=== PATIENT | female | born 1995 | race Native Hawaiian/Other Pacific Islander ===

== ENCOUNTER 2020-06-28 13:24 | Emergency (ER) | payer SELFPAY ==
--- NOTE | 2020-06-28 14:05 | Emergency Department Report ---
Blank Doc - Documentation Documentation: 25-year-old female that presents with left eye pain and foreign body sensation. This initial assessment/diagnostic orders/clinical plan/treatment(s) is/are subject to change based on patient's health status, clinical progression and re- assessment by fellow clinical providers in the ED. Further treatment and workup at subsequent clinical providers discretion. Patient/guardians urged not to elope from the ED as their condition may be serious if not clinically assessed and managed. Initial orders include: 1- Patient sent to [facility] for further evaluation and treatment 2- strickland lamp/mary pen 3- visual exam
[2020-06-28] MEDS ORDERED: FLUORESCEIN 1 MG STRIP OP ONE (15:10)
[2020-06-28] MEDS ORDERED: BALANCED SALT IRRIG (BSS) OPHTH SOLN 15 ML OU ONE (15:10)
[2020-06-28] MEDS ORDERED: TETRACAINE 0.5% OPHTH SOLN 4ML OU ONE (15:10)
[2020-06-28 15:32] VITALS: BP 109/74
--- NOTE | 2020-06-28 15:39 | Emergency Department Report ---
Eye Injury/Foreign Body - HPI Duration: 2 Days Eye Location: Left Tetanus Status: Up to Date Eye Symptoms: Eye Pain: Yes, Blurred Vision: No, Eye Redness: Yes, Grinding/Hammering Metal: No, Used Eye Protection: No, Contact Lens Use: No, Recalls Injury: No, Photophobia: No Other History: 25-year-old female presents to the emergency room complaining of left eye pain. Patient states she feels that she may have cut her eye or gotten something in it. Patient denies any blunt force no fingernail scratching but she does wear eyelash extensions. Patient reports that her pain is improved from yesterday. ED Review of Systems ROS: Stated complaint: CUT ON EYE Other details as noted in HPI Comment: All other systems reviewed and negative ED Past Medical Hx - Past Medical History Previous Medical History?: No - Surgical History Past Surgical History?: No - Medications Home Medications: Home Medications Medication Instructions Recorded Confirmed Last Taken Type Ibuprofen [Motrin 600 MG tab] 600 mg PO Q8H PRN #21 tablet 06/28/20 Unknown Rx Neomy/Polymyx B/Hc Opth Susp 1 drop OD Q6HR 10 Days #1 bottle 06/28/20 Unknown Rx [Cortisporin (OPTH) Susp] Eye Injury Exam - Exam General: Vital signs noted. No distress. Alert and acting appropriately. - Visual Acuity Left Vision Acuity Degree: 20/20 Eye Exam: Left Injection, Left EOMI, Left Fluorescein Uptake, Left Photophobia, Neither Abnormal Pupil, Neither Eye Foreign Body, Neither Lid Foreign Body, Neither Mucous Discharge, Neither Purulent Discharge, Neither Fluorescein Uptake (slit lamp), Neither Cell/Flare (slit lamp), Neither Corneal Edema Exam: No Josh sign ED Medical Decision Making - Medical Decision Making 25-year-old female presents to the emergency room complaining of left eye pain. Patient states she feels that she may have cut her eye or gotten something in it. Patient denies any blunt force no fingernail scratching but she does wear eyelash extensions. Patient reports that her pain is improved from yesterday. Fluorescein exam shows she has a fluorescein uptake to the left cornea with a linear line from 1:00 to 7:00. Some mild uptake to the portion of 11-12. Patient will be diagnosed with a corneal abrasion placed on IV antibiotics ibuprofen and referral to ophthalmology. Critical care attestation.: If time is entered above; I have spent that time in minutes in the direct care of this critically ill patient, excluding procedure time. ED Disposition Clinical Impression: Cornea abrasion Disposition: DC-01 TO HOME OR SELFCARE Is pt being admited?: No Does the pt Need Aspirin: No Condition: Stable Instructions: Corneal Abrasion (ED) Additional Instructions: Use eyedrops as prescribed. Tylenol or ibuprofen as needed for pain management very important for you to follow-up with an trouble clerk I have listed several below for your convenience. Prescriptions: Neomy/Polymyx B/Hc Opth Susp [Cortisporin (OPTH) Susp] 1 drop OD Q6HR 10 Days #1 bottle Ibuprofen [Motrin 600 MG tab] 600 mg PO Q8H PRN #21 tablet PRN Reason: Pain Referrals: PRIMARY CARE, [Primary Care Provider] - 3-5 Days WILLIAM MORALES MD [Staff Physician] - 3-5 Days [facility] [Provider Group] - 3-5 Days [facility] [Provider Group] - 3-5 Days Forms: Work/School Release Form(ED)
== END 2020-06-28 15:59 | disposition home or self-care (01) ==
LOC: ED 13:24
DX: S05.00XA Injury of conjunctiva and corneal abrasion without foreign body, unspecified eye, initial encounter (principal); Z79.899 Other long term (current) drug therapy; W45.8XXA Other foreign body or object entering through skin, initial encounter; Y93.89 Activity, other specified; Y92.89 Other specified places as the place of occurrence of the external cause; Y99.8 Other external cause status
CPT/HCPCS: 99282

== ENCOUNTER 2020-09-05 02:09 | Emergency (ER) | payer SELFPAY ==
[2020-09-05] MEDS ORDERED: IBUPROFEN 600 MG TAB PO ONE ×2 (02:34→05:14)
[2020-09-05] MEDS ORDERED: RABIES IMMUNE GLOBULIN P/F 300 UNIT/ML INJ 5 ML IM ONE (03:00)
[2020-09-05] MEDS ORDERED: DIPHtheria,PERTUSSIS(ACELL),TETANUS VACCINE/PF 0.5 ML VIAL IM ONE (03:03)
[2020-09-05] MEDS ORDERED: LET TOPICAL (LIDOCAINE/EPINEPHRINE/TETRACAINE) 3 ML TP ONE ×2 (03:03→05:15)
[2020-09-05] MEDS ORDERED: LIDOCAINE (1%) 10 MG/1 ML VIAL 20 ML MDV INFILTRATI ONE (03:03)
[2020-09-05] MEDS ORDERED: AMOXICILLIN/K CLAV 875/125MG TAB PO ONE (03:07)
[2020-09-05] MEDS ORDERED: RABIES VACCINE, HUMAN DIPLOID/PF 2.5 UNIT/ML VIAL IM ONE (03:15)
[2020-09-05] MEDS ORDERED: AMOXICILLIN/K CLAV 875/125MG TAB ONE (05:14)
[2020-09-05] MEDS ORDERED: predniSONE 20 MG TAB PO ONE (06:13)
[2020-09-05] MEDS ORDERED: diphenhydrAMINE 25 MG CAP PO ONE (06:14)
[2020-09-05] MEDS ORDERED: HYDROcodone/ACETAMINOPHEN 5-325 MG TAB PO ONE (06:14)
[2020-09-05] MEDS ORDERED: ONDANSETRON 4 MG ODT TAB PO ONE (06:14)
--- NOTE | 2020-09-05 06:19 | Emergency Department Report ---
ED Animal Bite HPI - General Chief Complaint: Animal Bite Stated Complaint: DOG BITE TO NOSE Source: patient, family Mode of arrival: Ambulatory Limitations: No Limitations - History of Present Illness Initial Comments: Patient is a nulliparous 25-year-old female with no past medical history presents to the ED with complaint of painful bleeding left facial and maxillary puncture wounds from a dog bite about 2 hours ago. Patient states that she was taking the trash out over the house when she suddenly was attacked by a stray dog that she could not recognizer and which bit her on the left maxillary or facial area. Patient states that she is not up-to-date with her tetanus vaccinations. Patient denies loss of consciousness, dizziness, syncope, nausea and vomiting, change in vision, dental injuries, headache or neck pain, chest pain or shortness of breath. MD Complaint: animal bite (dog bite to the face), animal-related injury (facial abrasions and puncture wounds) -: Sudden, hour(s) (2) Location: face Animal: dog (stray dog) Animal Control Notified: No Description: unknown animal, immunizations unknown Mechanism: bite (left facial abrasions, puncture wound), contact with mucous membr Pain Description: sharp, constant Severity scale (0 -10): 7 Context: unprovoked Associated Symptoms: bleeding Treatments Prior to Arrival: wound dressing(s) - Related Data Patient Tetanus UTD: No (Given during this visit) Previous Rx's Medication Instructions Recorded Last Taken Type Ibuprofen [Motrin 600 MG tab] 600 mg PO Q8H PRN #21 tablet 06/28/20 Unknown Rx Neomy/Polymyx B/Hc Opth Susp 1 drop OD Q6HR 10 Days #1 bottle 06/28/20 Unknown Rx [Cortisporin (OPTH) Susp] Acetaminophen/Codeine [Tylenol 1 tab PO Q6H PRN #12 tab 09/05/20 Unknown Rx /Codeine # 3 tab] Ciprofloxacin HCl [Ciprofloxacin 500 mg PO Q12HR #20 tab 09/05/20 Unknown Rx TAB] Clindamycin [Clindamycin CAP] 300 mg PO Q8HR #60 capsule 09/05/20 Unknown Rx Ibuprofen [Motrin] 600 mg PO Q8H PRN #30 tablet 09/05/20 Unknown Rx Ondansetron [Zofran Odt] 4 mg PO Q6HR PRN #15 tab.rapdis 09/05/20 Unknown Rx Allergies Allergy/AdvReac Type Severity Reaction Status Date / Time No Known Allergies Allergy Verified 06/28/20 14:02 ED Review of Systems ROS: Stated complaint: DOG BITE TO NOSE Other details as noted in HPI Constitutional: denies: chills, fever Eyes: denies: eye pain, eye discharge, vision change ENT: other (left maxillary puncture wound, abrasions and lacerations). denies: ear pain, throat pain Respiratory: denies: cough, shortness of breath, wheezing Cardiovascular: denies: chest pain, palpitations Endocrine: no symptoms reported Gastrointestinal: denies: abdominal pain, nausea, diarrhea Genitourinary: denies: urgency, dysuria, discharge Musculoskeletal: denies: back pain, joint swelling, arthralgia Skin: other (Bleeding painful left maxillary puncture wounds, lacerations and abrasions). denies: rash, lesions Neurological: denies: headache, weakness, paresthesias Psychiatric: denies: anxiety, depression Hematological/Lymphatic: denies: easy bleeding, easy bruising ED Past Medical Hx - Past Medical History Previous Medical History?: No - Surgical History Past Surgical History?: Yes Additional Surgical History: right pointer finger surgery - Social History Smoking Status: Never Smoker Substance Use Type: Marijuana - Medications Home Medications: Home Medications Medication Instructions Recorded Confirmed Last Taken Type Ibuprofen [Motrin 600 MG tab] 600 mg PO Q8H PRN #21 tablet 06/28/20 Unknown Rx Neomy/Polymyx B/Hc Opth Susp 1 drop OD Q6HR 10 Days #1 bottle 06/28/20 Unknown Rx [Cortisporin (OPTH) Susp] Acetaminophen/Codeine [Tylenol 1 tab PO Q6H PRN #12 tab 09/05/20 Unknown Rx /Codeine # 3 tab] Ciprofloxacin HCl [Ciprofloxacin 500 mg PO Q12HR #20 tab 09/05/20 Unknown Rx TAB] Clindamycin [Clindamycin CAP] 300 mg PO Q8HR #60 capsule 09/05/20 Unknown Rx Ibuprofen [Motrin] 600 mg PO Q8H PRN #30 tablet 09/05/20 Unknown Rx Ondansetron [Zofran Odt] 4 mg PO Q6HR PRN #15 tab.rapdis 09/05/20 Unknown Rx ED Physical Exam - General Limitations: No Limitations General appearance: alert, in no apparent distress - Head Head exam: Present: other (Left maxillary bleeding 4 cm puncture wound and multiple abrasions) - Eye Eye exam: Present: normal appearance, PERRL, EOMI Pupils: Present: normal accommodation - ENT ENT exam: Present: normal exam, normal orophraynx, mucous membranes moist, TM's normal bilaterally, normal external ear exam - Neck Neck exam: Present: normal inspection, full ROM - Respiratory Respiratory exam: Present: normal lung sounds bilaterally. Absent: respiratory distress, wheezes, rhonchi, chest wall tenderness, accessory muscle use, decreased breath sounds - Cardiovascular Cardiovascular Exam: Present: regular rate, normal rhythm, normal heart sounds. Absent: systolic murmur, diastolic murmur, rubs, gallop - GI/Abdominal GI/Abdominal exam: Present: soft, normal bowel sounds. Absent: tenderness, guarding, rebound, hyperactive bowel sounds, hypoactive bowel sounds - Extremities Exam Extremities exam: Present: normal inspection, full ROM, normal capillary refill - Back Exam Back exam: Present: normal inspection, full ROM. Absent: tenderness, CVA tenderness (R), CVA tenderness (L), muscle spasm, paraspinal tenderness, vertebral tenderness - Neurological Exam Neurological exam: Present: alert, oriented X3, CN II-XII intact, normal gait, reflexes normal - Psychiatric Psychiatric exam: Present: normal affect, normal mood, anxious - Skin Skin exam: Present: warm, dry, normal color, abrasion, other (left maxillary bleeding 4 cm puncture wound and abrasions). Absent: rash ED Course Vital Signs 09/05/20 02:13 Temperature 98.0 F Pulse Rate 98 H Respiratory 20 Rate Blood Pressure 122/79 O2 Sat by Pulse 99 Oximetry - Laceration /Wound Repair Left Face Wound Location: face (left maxillary bleeding puncture wound) Wound Length (cm): 4 Wound's Depth, Shape: superficial, irregular Wound Explored: contaminated Irrigated w/ Saline (ccs): 100 Betadine Prep?: Yes Anesthesia: 1% Lidocaine Volume Anesthetic (ccs): 4 Wound Debrided: extensive Wound Repaired With: sutures Suture Size/Type: 5:0, proline Number of Sutures: 9 Layer Closure?: No Sterile Dressing Applied?: No Progress: Patient tolerated the procedure well after the wound was cleaned thoroughly with normal saline and Betadine and local anesthetic lidocaine 1% solution infiltrated around the puncture wound. The wound was then sutured per protocol and the patient tolerated procedure well. Patient was discharged home on pain medication and prophylactic antibiotics and was advised to return to the ED imm ediately if symptoms get worse. Patient was also advised to follow-up with her primary care physician in 5 to 7 days for reevaluation. Patient was advised to return to the ED or to her primary care physician in 8 to 10 days for suture removal. Critical care attestation.: If time is entered above; I have spent that time in minutes in the direct care of this critically ill patient, excluding procedure time. ED Disposition Clinical Impression: Dog bite of face Qualifiers: Encounter type: initial encounter Qualified Code(s): S01.85XA - Open bite of other part of head, initial encounter; W54.0XXA - Bitten by dog, initial encounter Puncture wound of face Qualifiers: Encounter type: initial encounter Qualified Code(s): S01.83XA - Puncture wound without foreign body of other part of head, initial encounter Disposition: DC- TO HOME OR SELFCARE Is pt being admited?: No Does the pt Need Aspirin: No Condition: Stable Instructions: Animal Bite, Adult, [id number], Puncture Wound, [id number], Sutured Wound Care, [id number] Additional Instructions: Take medication with food, drink plenty of fluids and follow-up with the either [facility] or [facility] department for subsequent rabies vaccination series. Follow-up with this office is on the following dates Tuesday September 08, 2020 (day 3); Saturday, September 12, 2020 (Day 7) and Saturday, September 19, 2020 (Day 14) serial rabies vaccinations. Return to the ED immediately if symptoms get worse especially if you develop severe pain, swelling or redness around your face, fever and chills or purulent discharge from the wound. Otherwise return to the ED or to your primary care physician in 8 to 10 days for suture removal. Prescriptions: Ciprofloxacin HCl [Ciprofloxacin TAB] 500 mg PO Q12HR #20 tab Clindamycin [Clindamycin CAP] 300 mg PO Q8HR #60 capsule Ibuprofen [Motrin] 600 mg PO Q8H PRN #30 tablet PRN Reason: Pain Acetaminophen/Codeine [Tylenol /Codeine # 3 tab] 1 tab PO Q6H PRN #12 tab PRN Reason: Pain , Severe (7-10) Ondansetron [Zofran Odt] 4 mg PO Q6HR PRN #15 tab.rapdis PRN Reason: Nausea Referrals: [facility] [Provider Group] - 7-10 days Forms: Work/School Release Form(ED) Time of Disposition: 06:25 Print Language: ROMANSH
[2020-09-05 07:33] VITALS: BP 111/72
== END 2020-09-05 07:25 | disposition home or self-care (01) ==
LOC: ED 02:09
DX: S01.83XA Puncture wound without foreign body of other part of head, initial encounter (principal); S01.85XA Open bite of other part of head, initial encounter; F12.90 Cannabis use, unspecified, uncomplicated; Z79.899 Other long term (current) drug therapy; Z98.890 Other specified postprocedural states; W54.0XXA Bitten by dog, initial encounter; Y93.89 Activity, other specified; Y92.89 Other specified places as the place of occurrence of the external cause; Y99.8 Other external cause status
CPT/HCPCS: 90375; 90471; 90675; 96372